=== PATIENT | male | born 1945 | race Asian ===

== ENCOUNTER 2021-11-16 11:07 | Day surgery (SDC) | payer MEDICARE, OTHER ==
[~2021-11-16] VITALS: Ht 160 cm; Wt 76.3 kg
[~2021-11-16 11:07] MED LIST: ASPI-1450 PO; ATOR40TA28 PO; AUD NEB; CIPR250T6 PO; DOCU-270 PO; DOCU283E PR; FAMO20 PO; FERR-89 PO; HEPA500018 SQ; HYPR15DR23 OU; MODA100T65 PO; SENN8.6T90 PO; SODIUM CHLORIDE 0.9% 1,000 ML IV ONE; SODIUM CHLORIDE 0.9% 1,000 ML ONE
[2021-11-16] MEDS ORDERED: LIDOCAINE/PF 2% 5 ML SYRINGE IVP ONE (11:08)
[2021-11-16] MEDS ORDERED: PROPOFOL 1% 20 ML VIAL IVP ONE (11:08)
[2021-11-16 11:46] LABS: COVID AG,FIA SOURCE NASOPHARYNGEAL
[2021-11-16 11:57] LABS: GLUCOMETER DEV NAME(LOC) SDS.; GLUCOSE,POINT OF CARE 122 MG/DL (70-110)
== END 2021-11-16 13:55 ==
LOC: SURGERY 11:07
PROVIDERS: ATTEND Student in an Organized Health Care Education/Training Program
DX: K62.5 Hemorrhage of anus and rectum (principal); D50.9 Iron deficiency anemia, unspecified; K63.5 Polyp of colon; K57.30 Diverticulosis of large intestine without perforation or abscess without bleeding; K64.8 Other hemorrhoids; E11.9 Type 2 diabetes mellitus without complications; I69.354 Hemiplegia and hemiparesis following cerebral infarction affecting left non-dominant side; I10 Essential (primary) hypertension; Z79.899 Other long term (current) drug therapy; Z98.890 Other specified postprocedural states
CPT/HCPCS: 45385; 82962; 87426; 93005; C1769; C9803; J2704; J3490; J7030; 88305